=== PATIENT | female | born 1960 | race Caucasian/White ===

== ENCOUNTER 2020-06-17 09:13 | Outpatient (CLI) | payer OTHER, SELFPAY ==
--- NOTE | 2020-06-17 09:24 | MM_ITS ---
WS: [id number] BILATERAL SCREENING DIGITAL MAMMOGRAM WITH CAD HISTORY: SCREENING COMPARISON: 11/10/2016 and 05/12/2010 Bilateral CC and MLO views submitted. Computer aided detection analyzed. Breast composition: There are scattered areas of fibroglandular density. No suspicious masses, microc alcifications or architectural distortion. Fibroglandular densities are decreasing as expected. Benig n calcifications in each breast. No architectural distortion. MM/[place] [id number] IMPRESSION: BI-RADS: 2-Benign FOLLOW UP: 1 Year Follow-up
== END 2020-06-17 09:14 | disposition home or self-care (01) ==
LOC: RADSHAW 09:17
PROVIDERS: PCP Nurse Practitioner Family; Visit Provider Nurse Practitioner Family
DX: Z12.31 Encounter for screening mammogram for malignant neoplasm of breast (principal)
CPT/HCPCS: 77067

== ENCOUNTER → 2021-11-05 08:37 | Outpatient (BNVA) | payer MEDICARE, SELFPAY | PROVIDERS: PCP Nurse Practitioner Family; Referring Provider Family Medicine; Visit Provider Specialist | DX: M25.531 Pain in right wrist (principal) | CPT/HCPCS: 73110 ==

== ENCOUNTER 2022-03-04 10:41 | Outpatient (CLI) | payer MEDICARE, SELFPAY ==
--- NOTE | 2022-03-04 11:58 | MRR_ITS ---
PROCEDURE INFORMATION: Exam: MR Right Upper Extremity Joint Without Contrast; Wrist Exam date and time: 03/04/2022 12:04 PM Age: 61 years old Clinical indication: Patient HX: Pain , swelling in right wrist and index finger x1 year no injury; Additional info: Wrist pain TECHNIQUE: Imaging protocol: Magnetic resonance imaging of the Right upper extremity without contrast. Exam focused on the wrist. COMPARISON: CR XR wrist RT min 3V* [id number] 11/05/2021 8:40 AM FINDINGS: There are moderate degenerative changes at the base of the thumb. There is chronic appearing fragmentation of the trapezoid and trapezium, as well as the distal pole of the scaphoid. Mild associated bone marrow edema is evident. There is subcortical cystic change in the hamate. There is diffuse intra-articular fluid and synovitis about the wrist, most pronounced radially. There is a small to moderate amount of loculated fluid in the distal radioulnar joint. There is no evidence of acute fracture or dislocation. Alignment is anatomic. There is partial-thickness tearing at the ulnar attachment of the triangular fibrocartilage. Evaluation for intercarpal ligament injury is suboptimal without intra-articular contrast. There is no convincing scapholunate or lunotriquetral ligament tear. The visualized portions of the flexor and extensor tendons are normal in appearance. There is a small amount of loculated fluid in the flexor carpi radialis tendon sheath. The median nerve is also normal in appearance. MR/MR wrist RT wo con* [id number] IMPRESSION: 1. Moderate inflammation and degenerative change about the wrist, predominantly along the radial aspect and base of the thumb, possibly secondary to underlying remote trauma. 2. Mild flexor carpi radialis tenosynovitis. 3. Partial-thickness tearing at the ulnar attachment of the triangular fibrocartilage. 4. Additional findings, as above.
== END 2022-03-04 10:42 | disposition home or self-care (01) ==
LOC: RAD 10:44
PROVIDERS: PCP Family Medicine; Visit Provider Specialist
DX: M19.031 Primary osteoarthritis, right wrist (principal); M65.88 Other synovitis and tenosynovitis, other site
CPT/HCPCS: 73221